=== PATIENT | female | born 1985 | race Two or more races ===

== ENCOUNTER → 2017-07-23 | Outpatient (REF) | payer OTHER | LOC: M SFHCLERA 10:50 | PROVIDERS: ATTEND Physician Assistant | DX: N30.01 Acute cystitis with hematuria (principal) ==

== ENCOUNTER 2017-11-13 11:17 | Outpatient (REF) | payer OTHER ==
[2017-11-29 15:01] LABS: BASO % 0.1 % (0.0-1.0); EOS # 0.1 10^3/uL (0.0-0.50); EOS % 1.4 % (0.0-3.0); HEMATOCRIT 42.3 % (36.0-47.0); HEMOGLOBIN 14.1 g/dl (12.0-16.0); IMMATURE GRANULOCYTE % 0.1 % (0-3.0); LYMPH # 2.1 10^3/uL (1.5-4.5); LYMPH % 29.5 % (24.0-44.0); MEAN CORPUSCULAR HEMOGLOBIN 30.1 pg (27.0-33.0); MEAN CORPUSCULAR HGB CONC 33.3 g/dl (32.0-36.5); MEAN CORPUSCULAR VOLUME 90.4 fl (80.0-96.0); MONO # 0.4 10^3/uL (0.0-0.8); MONO % 5.3 % (0.0-5.0); NEUTROPHILS # 4.6 10^3/uL (1.8-7.7); NEUTROPHILS % 63.6 % (36.0-66.0); PLATELET COUNT, AUTOMATED 346 10^3/uL (150-450); RED BLOOD COUNT 4.68 10^6/uL (4.00-5.40); WHITE BLOOD COUNT 7.2 10^3/uL (4.0-10.0)
[2017-11-29 15:31] LABS: ERYTHROCYTE SEDIMENTATION RATE 4 mm/hr (0-20)
[2017-11-29 15:43] LABS: ALBUMIN 3.8 GM/DL (3.2-5.2); ALBUMIN/GLOBULIN RATIO 1.31 (1.00-1.93); ALKALINE PHOSPHATASE 65 U/L (45-117); ALT/SGPT 23 U/L (12-78); ANION GAP 9 MEQ/L (8-16); AST/SGOT 18 U/L (7-37); BILIRUBIN,TOTAL 0.4 MG/DL (0.2-1.0); BLOOD UREA NITROGEN 11 MG/DL (7-18); CALCIUM LEVEL 8.9 MG/DL (8.5-10.1); CARBON DIOXIDE LEVEL 26 MEQ/L (21-32); CHLORIDE LEVEL 106 MEQ/L (98-107); CREATININE FOR GFR 0.67 MG/DL (0.55-1.30); GLOMERULAR FILTRATION RATE > 60.0 (>60); GLUCOSE, FASTING 71 MG/DL (70-100); POTASSIUM SERUM 4.2 MEQ/L (3.5-5.1); RHEUMATOID FACTOR QUANT < 10.0 IU/ML (0-15.0); SODIUM LEVEL 141 MEQ/L (136-145); TOTAL PROTEIN 6.7 GM/DL (6.4-8.2)
[2017-11-29 15:58] LABS: TOTAL 25(OH) VITAMIN D 36.1 NG/ML (30.0-100.0)
[2017-12-01 10:14] LABS: ANTINUCLEAR ANTIBODIES DIRECT Negative (Negative)
== END 2017-11-29 ==
LOC: M LABNEURO 11:17
DX: R51 Headache (principal)

== ENCOUNTER 2018-02-04 06:04 | Emergency (ER) | payer OTHER | END 2018-02-04 08:06 | disposition home or self-care (01) | LOC: M ED 06:04 | DX: R07.81 Pleurodynia (principal); Z91.81 History of falling; G43.909 Migraine, unspecified, not intractable, without status migrainosus; F41.9 Anxiety disorder, unspecified; F32.9 Major depressive disorder, single episode, unspecified; Z79.899 Other long term (current) drug therapy | CPT/HCPCS: 71101 ==

== ENCOUNTER → 2019-08-08 | Outpatient (REF) | payer OTHER ==
[~2019-08-08] MED LIST: ABIL10TA9 PO; ACET-716 PO; ALLE60TA69 PO; INDO50CA91 PO; KLON1TAB PO; PAXI40TA10 PO
== END ==
LOC: M SFHCLERA 12:08
PROVIDERS: ATTEND Nurse Practitioner Family
DX: M54.2 Cervicalgia (principal)

== ENCOUNTER 2019-09-11 14:54 | Emergency (ER) | payer OTHER ==
[~2019-09-11] VITALS: Ht 170.2 cm; Wt 118.2 kg
[2019-09-11] MEDS ORDERED: ZOLO100T PO (16:09)
[2019-09-11] MEDS ORDERED: ZONI50CA3 (16:11)
[2019-09-11 17:19] LABS: INFLUENZA A AMPLIFICATION NEGATIVE (NEGATIVE); INFLUENZA B AMPLIFICATION NEGATIVE (NEGATIVE)
--- NOTE | 2019-09-11 17:45 | REP ---
Clinical: Cough and flu-like symptoms . Comparison: None . Technique: PA and lateral. Findings: The mediastinum and cardiac silhouette are normal. The lung nieves are clear and without acute consolidation, effusion, or pneumothorax. The skeletal structures are intact and normal. Impression: 1. No acute cardiopulmonary process. Electronically Signed by Siva Pearson MD 09/11/2019 05:37 P
[2019-09-11 17:56] VITALS: BP 118/76
[2019-09-11] MEDS ORDERED: AZIT-12 PO (18:41)
== END 2019-09-11 18:52 | disposition home or self-care (01) ==
LOC: M ED 14:54
DX: J01.90 Acute sinusitis, unspecified (principal); J02.9 Acute pharyngitis, unspecified; J68.0 Bronchitis and pneumonitis due to chemicals, gases, fumes and vapors; G47.30 Sleep apnea, unspecified; F17.290 Nicotine dependence, other tobacco product, uncomplicated; Z79.83 Long term (current) use of bisphosphonates; Z79.899 Other long term (current) drug therapy

== ENCOUNTER 2020-01-23 12:28 | Emergency (ER) | payer OTHER ==
[~2020-01-23] VITALS: Ht 170.2 cm; Wt 126.0 kg
[~2020-01-23 12:28] MED LIST changes: +AZIT-12 PO; +ZOLO100T PO; +ZONI50CA11 PO
[2020-01-23] MEDS ORDERED: ZONI100C17 PO (12:35)
[2020-01-23 13:11] LABS: BASO % 0.2 % (0.0-1.0); EOS # 0.1 10^3/uL (0.0-0.5); EOS % 1.7 % (0.0-3.0); HEMATOCRIT 42.1 % (36.0-47.0); HEMOGLOBIN 14.1 g/dl (12.0-15.5); LYMPH # 2.1 10^3/uL (1.5-5.0); LYMPH % 25.3 % (24.0-44.0); MEAN CORPUSCULAR HEMOGLOBIN 31.2 pg (27.0-33.0); MEAN CORPUSCULAR HGB CONC 33.5 g/dl (32.0-36.5); MEAN CORPUSCULAR VOLUME 93.1 fl (80.0-96.0); MONO # 0.5 10^3/uL (0.0-0.8); MONO % 5.4 % (0.0-5.0); NEUTROPHILS # 5.6 10^3/uL (1.5-8.5); PLATELET COUNT, AUTOMATED 277 10^3/uL (150-450); RED BLOOD COUNT 4.52 10^6/uL (4.00-5.40); WHITE BLOOD COUNT 8.3 10^3/uL (4.0-10.0)
[2020-01-23] MEDS ORDERED: ONDANSETRON 4MG/2ML VIAL (J2405) IV ONE (13:30)
[2020-01-23] MEDS ORDERED: NS 1,000 ML IV ONE (13:30)
[2020-01-23 13:40] LABS: ALBUMIN 3.5 GM/DL (3.2-5.2); ALT/SGPT 22 U/L (12-78); BILIRUBIN,DIRECT < 0.1 MG/DL (0.0-0.2); BILIRUBIN,TOTAL 0.4 MG/DL (0.2-1.0); BLOOD UREA NITROGEN 10 MG/DL (7-18); CALCIUM LEVEL 8.9 MG/DL (8.5-10.1); CARBON DIOXIDE LEVEL 27 MEQ/L (21-32); CHLORIDE LEVEL 106 MEQ/L (98-107); CREATININE FOR GFR 0.83 MG/DL (0.55-1.30); GLOMERULAR FILTRATION RATE > 60.0 (>60); GLUCOSE, FASTING 81 MG/DL (70-100); LIPASE 115 U/L (73-393); POTASSIUM SERUM 4.1 MEQ/L (3.5-5.1); SODIUM LEVEL 138 MEQ/L (136-145); TOTAL PROTEIN 6.6 GM/DL (6.4-8.2)
--- NOTE | 2020-01-23 14:21 | REP ---
REASON: Epigastric pain. FINDINGS: Supine and upright views of the abdomen show the intestinal gas pattern to be nonspecific. Gas and stool is seen throughout the colon within the rectosigmoid region. The organ silhouettes insofar as delineated appear unremarkable. No abdominal calcific densities are seen within the abdomen or pelvis. The accompanying single frontal view of the chest shows no free subdiaphragmatic air, cardiomegaly, infiltrates or effusions. IMPRESSION: Nonspecific intestinal gas pattern. Electronically Signed by Silviano Osullivan DO 01/23/2020 02:28 P
[2020-01-23] MEDS ORDERED: KETOROLAC 30 MG/ML 1ML VIAL (J1885 PER 15MG) IV ONE (14:45)
[2020-01-23] MEDS ORDERED: CARA1TAB6 PO (14:53)
[2020-01-23] MEDS ORDERED: ONDA4TAB6 PO (14:53)
[2020-01-23] MEDS ORDERED: CYCL-707 PO (15:19)
[2020-01-23 15:34] VITALS: BP 108/68
== END 2020-01-23 15:41 | disposition home or self-care (01) ==
LOC: M ED 12:28
DX: K29.70 Gastritis, unspecified, without bleeding (principal); R11.2 Nausea with vomiting, unspecified; M62.830 Muscle spasm of back; Z98.84 Bariatric surgery status; G43.909 Migraine, unspecified, not intractable, without status migrainosus; G47.30 Sleep apnea, unspecified; K21.9 Gastro-esophageal reflux disease without esophagitis; Z87.440 Personal history of urinary (tract) infections; F41.9 Anxiety disorder, unspecified; F32.9 Major depressive disorder, single episode, unspecified; E66.9 Obesity, unspecified; Z79.899 Other long term (current) drug therapy
CPT/HCPCS: 36415; 74021; 80048; 80076; 83605; 83690; 85025; 96361; 96374; 96375; 99284; J1885; J2405

== ENCOUNTER 2020-02-12 14:33 | Emergency (ER) | payer OTHER ==
[~2020-02-12] VITALS: Ht 170.2 cm; Wt 130.2 kg
[~2020-02-12 14:33] MED LIST changes: +CARA1TAB6 PO; +CYCL-707 PO; +ONDA4TAB6 PO; +ZONI100C17 PO
[2020-02-12] MEDS ORDERED: AMPH1CAP16 (14:43)
[2020-02-12] MEDS ORDERED: IBUP-1720 (14:43)
[2020-02-12] MEDS ORDERED: NS 1,000 ML IV ONE (15:15)
[2020-02-12] MEDS ORDERED: PANTOPRAZOLE 40MG VIAL (C9113 PER 1) IV ONE (15:45)
[2020-02-12 16:00] LABS: BASO % 0.5 % (0.0-1.0); EOS # 0.2 10^3/uL (0.0-0.5); EOS % 2.5 % (0.0-3.0); HEMATOCRIT 43.7 % (36.0-47.0); HEMOGLOBIN 14.8 g/dl (12.0-15.5); LYMPH % 31.8 % (24.0-44.0); MEAN CORPUSCULAR HEMOGLOBIN 31.6 pg (27.0-33.0); MEAN CORPUSCULAR HGB CONC 33.9 g/dl (32.0-36.5); MEAN CORPUSCULAR VOLUME 93.4 fl (80.0-96.0); MONO # 0.4 10^3/uL (0.0-0.8); MONO % 6.9 % (0.0-5.0); NEUTROPHILS # 3.7 10^3/uL (1.5-8.5); PLATELET COUNT, AUTOMATED 296 10^3/uL (150-450); RED BLOOD COUNT 4.68 10^6/uL (4.00-5.40); WHITE BLOOD COUNT 6.4 10^3/uL (4.0-10.0)
--- NOTE | 2020-02-12 16:15 | REP ---
ABDOMEN SERIES: Four views. HISTORY: Abdomen pain. Comparison study January 23, 2020. FINDINGS: Upright chest radiograph shows no evidence of infiltrate or free subdiaphragmatic air. Heart is not enlarged. Supine erect views of the abdomen show clips in right upper quadrant and an IUD in the central pelvis. There are phleboliths in the pelvis bilaterally. Psoas margins and flank stripes are intact. The bowel gas pattern is normal with a moderate amount of stool in the ascending transverse and descending colon. No large or small bowel dilation is seen. No mass organomegaly is appreciated. IMPRESSION: Unremarkable abdominal series. Moderate amount of stool. Clips in right upper quadrant. IUD in the central pelvis. Electronically Signed by Joseph Marie MD 02/12/2020 04:42 P
[2020-02-12] MEDS ORDERED: FLEET ENEMA PR STA (16:18)
[2020-02-12 16:25] LABS: ALBUMIN 3.7 GM/DL (3.2-5.2); ALT/SGPT 32 U/L (12-78); BILIRUBIN,DIRECT < 0.1 MG/DL (0.0-0.2); BILIRUBIN,TOTAL 0.6 MG/DL (0.2-1.0); LIPASE 97 U/L (73-393); TOTAL PROTEIN 7.2 GM/DL (6.4-8.2)
[2020-02-12] MEDS ORDERED: LACTULOSE 20 GM/30 ML SYRUP UD PO ONE (16:30)
[2020-02-12] MEDS ORDERED: COLA100C5 PO (17:35)
[2020-02-12] MEDS ORDERED: LACT10SO3 PO (17:35)
[2020-02-12 17:45] VITALS: BP 123/71
== END 2020-02-12 17:47 | disposition home or self-care (01) ==
LOC: M ED 14:33
DX: K59.00 Constipation, unspecified (principal); M54.5 Low back pain; R11.0 Nausea; K21.9 Gastro-esophageal reflux disease without esophagitis; G43.909 Migraine, unspecified, not intractable, without status migrainosus; G47.33 Obstructive sleep apnea (adult) (pediatric); F41.9 Anxiety disorder, unspecified; F32.9 Major depressive disorder, single episode, unspecified; K27.9 Peptic ulcer, site unspecified, unspecified as acute or chronic, without hemorrhage or perforation; Z87.442 Personal history of urinary calculi; Z98.84 Bariatric surgery status; F17.290 Nicotine dependence, other tobacco product, uncomplicated; Z79.899 Other long term (current) drug therapy
CPT/HCPCS: 74021; 80047; 80076; 81001; 83605; 83690; 84702; 85025; 87086; 96361; 96374; 99284; C9113

== ENCOUNTER 2020-03-09 08:08 | Emergency (ER) | payer OTHER ==
[~2020-03-09] VITALS: Ht 170.2 cm; Wt 134.4 kg
[~2020-03-09 08:08] MED LIST changes: +AMPH1CAP16; +COLA100C5 PO; +IBUP-1720; +LACT10SO3 PO
[2020-03-09] MEDS ORDERED: LIDOCAINE 5% (LIDODERM) PATCH TD ONE (08:45)
[2020-03-09 09:12] LABS: BASO % 0.1 % (0.0-1.0); EOS # 0.2 10^3/uL (0.0-0.5); EOS % 1.7 % (0.0-3.0); HEMATOCRIT 43.6 % (36.0-47.0); HEMOGLOBIN 14.6 g/dl (12.0-15.5); LYMPH # 1.5 10^3/uL (1.5-5.0); LYMPH % 16.4 % (24.0-44.0); MEAN CORPUSCULAR HEMOGLOBIN 31.4 pg (27.0-33.0); MEAN CORPUSCULAR HGB CONC 33.5 g/dl (32.0-36.5); MEAN CORPUSCULAR VOLUME 93.8 fl (80.0-96.0); MONO # 0.4 10^3/uL (0.0-0.8); MONO % 4.5 % (0.0-5.0); NEUTROPHILS # 7.1 10^3/uL (1.5-8.5); NEUTROPHILS % 76.9 % (36.0-66.0); PLATELET COUNT, AUTOMATED 262 10^3/uL (150-450); RED BLOOD COUNT 4.65 10^6/uL (4.00-5.40); WHITE BLOOD COUNT 9.3 10^3/uL (4.0-10.0)
[2020-03-09] MEDS ORDERED: KETOROLAC 30 MG/ML 1ML VIAL IV ONE (09:30)
[2020-03-09 09:42] LABS: ALBUMIN 3.6 GM/DL (3.2-5.2); ALT/SGPT 30 U/L (12-78); BILIRUBIN,DIRECT 0.1 MG/DL (0.0-0.2); BILIRUBIN,TOTAL 0.5 MG/DL (0.2-1.0); BLOOD UREA NITROGEN 12 MG/DL (7-18); CARBON DIOXIDE LEVEL 25 MEQ/L (21-32); CHLORIDE LEVEL 108 MEQ/L (98-107); CREATININE FOR GFR 0.81 MG/DL (0.55-1.30); GLOMERULAR FILTRATION RATE > 60.0 (>60); GLUCOSE, FASTING 74 MG/DL (70-100); LIPASE 87 U/L (73-393); SODIUM LEVEL 141 MEQ/L (136-145); TOTAL PROTEIN 7.1 GM/DL (6.4-8.2)
--- NOTE | 2020-03-09 10:17 | REP ---
ABDOMINAL SERIES: Supine and erect views of the abdomen demonstrate no evidence of free intraperitoneal air and no evidence of small bowel obstruction. There is moderate fecal material in the colon, particularly on the right. Tiny phleboliths are seen in the pelvis. IUD is seen centrally in the pelvis. Metallic clips are seen in the right upper quadrant. An accompanying view of the chest demonstrates no acute infiltrate. The heart and mediastinum are unremarkable and unchanged since 02/12/2020. IMPRESSION: Moderate fecal material in the colon. Otherwise, unremarkable abdominal series. Electronically Signed by Marty Contreras MD 03/09/2020 11:16 A
[2020-03-09] MEDS ORDERED: GLYCERIN ADULT SUPP PR ONE (10:30)
[2020-03-09] MEDS ORDERED: LIDO5DIS41 TOP ×2 (12:44→12:59)
[2020-03-09] MEDS ORDERED: SENN-80 PO ×2 (12:44→12:59)
[2020-03-09] MEDS ORDERED: MAGNESIUM CITRATE 300 ML BTL PO ONE (12:45)
[2020-03-09] MEDS ORDERED: ACETAMINOPH W/CODEINE #3 TAB UD PO ONE (12:45)
[2020-03-09 12:51] VITALS: BP 121/79
[2020-03-09] MEDS ORDERED: **NOTE PATIENT COMMENT** MISC XX SCH (21:00)
== END 2020-03-09 12:54 | disposition home or self-care (01) ==
LOC: M ED 08:08
DX: K59.00 Constipation, unspecified (principal); M54.5 Low back pain; F33.9 Major depressive disorder, recurrent, unspecified; F41.9 Anxiety disorder, unspecified; K21.9 Gastro-esophageal reflux disease without esophagitis; G43.909 Migraine, unspecified, not intractable, without status migrainosus; G47.30 Sleep apnea, unspecified; E66.9 Obesity, unspecified; Z79.899 Other long term (current) drug therapy
CPT/HCPCS: 74021; 80047; 80048; 80076; 83690; 84702; 85025; 96374; 99284; J1885